=== PATIENT | female | born 1940 | race Two or more races ===

== ENCOUNTER 2019-02-03 16:17 | Emergency (ER) | payer MEDICARE, OTHER ==
[~2019-02-03] VITALS: Ht 160 cm; Wt 83.0 kg
[2019-02-03 16:23] VITALS: BP 172/95
[2019-02-03 16:38] LABS: Urine Bacteria MOD /hpf (None Seen); Urine Blood Negative /uL (Negative); Urine Specific Gravity 1.004 (1.001-1.035); Urine WBC 13 /hpf (0 - 5)
[2019-02-03] MEDS ORDERED: cefTRIAXone SOD 1,000 MG VL IM ONE (18:00)
[2019-02-03] MEDS ORDERED: PHENAZOPYRIDINE HCL 100 MG TAB PO ONE (18:00)
== END 2019-02-03 18:08 | disposition home or self-care (01) ==
LOC: ER 16:20
DX: N39.0 Urinary tract infection, site not specified (principal); I10 Essential (primary) hypertension
CPT/HCPCS: 81001; 96372; 99283; J0696